=== PATIENT | female | born 1955 | race Caucasian/White ===

== ENCOUNTER → 2017-01-23 | Outpatient (CLI) | payer OTHER ==
[~2017-01-23] VITALS: Ht 172.7 cm; Wt 86.1 kg
[~2017-01-23] MED LIST: HYDROCHLOROTHIA25 M1 PO; HYDROCODON-ACE1 EAC8 PO; HYDROXYCHLOROQ200 M1 PO; NABUMETONE 750750 M1 PO; PREDNISONE 5 MG5 MG PO; TOPROL XL50 MG PO
--- NOTE | ~2017-01-23 | HPC ---
[facility] [place] [address] PAIN MANAGEMENT CONSULTATION Name: KIM RYDER ANN Room #: REG MITCHELDerrick Verde#: [id number] Admission: 01/23/17 Attend Phys: Bishop Ro DO Discharge: Date of : 55 Report #: [id number] THIS REPORT FOR: //name// CC: Obi Ro The patient is a very pleasant 61-year-old female being treated for symptomatic lumbar radiculopathy, status post decompressive laminectomy, seeing in consultation on 01/13/2017. We sought authorization for right L4-L5 and L5-S1 transforaminal epidural injections. The patient was started on Naprosyn 500 mg b.i.d. Returns to pain clinic today noting Naprosyn is doing well, but still has ongoing pain, rates it at 6-7 on a VAS. Pain is in the right L4 and L5 distribution, lateral leg primarily with posterior aspect as well. ASSESSMENT: Symptomatic lumbar radiculopathy, status post decompressive laminectomy. RECOMMENDATION: Proceed with epidural injection under fluoroscopy today, right L4-L5 and right L5-S1 transforaminal epidural injections. Continue Naprosyn. Follow up in 3 weeks for reevaluation. PROCEDURE 1: Right L4-L5 transforaminal epidural injection under fluoroscopy. PROCEDURE NOTE: After both written and informed consent was obtained including risk of spinal cord damage, infection, increased pain and paralysis, the patient agreed to proceed. The patient was taken to the fluoroscopy suite, placed in a prone position with appropriate abdominal bolstering. After sterile prep with ChloraPrep and sterile drape, a skin wheal with 1% Xylocaine was raised. A 22 gauge 4-1/2 inch epidural Tuohy needle was inserted. From an oblique approach into the posterior-superior aspect of the right L4-L5 neural foramen with continuous pressure on the glass syringe plunger for loss of resistance. Glass syringe was filled with 2 cc of 0.1 Xylocaine. The glass loss of resistance syringe was removed. A low volume extension tubing was connected, negative aspiration was accomplished for cerebrospinal fluid or blood. 1 mL of Omnipaque was injected which showed spread both within the epidural space and laterally along the nerve root. This was followed with 40 mg of triamcinolone plus 1 mL of 1.5% preservative-free Xylocaine. Needle was partially withdrawn, 0.5 mL of Xylocaine was injected to clear the needle and the needle was removed. The area was cleansed, band-aid was applied. The patient was allowed to ambulate to the recovery room, discharged in good and stable condition. PROCEDURE 2: Right L5-S1 transforaminal epidural injection under fluoroscopy. PROCEDURE NOTE: After both written and informed consent was obtained including risk of spinal cord damage, infection, increased pain and paralysis, the patient agreed to proceed. The patient was taken to the fluoroscopy suite, placed in a prone position with appropriate abdominal bolstering. After sterile prep with [address] [address] PAIN MANAGEMENT CONSULTATION Name: KIM RYDER Room #: JERARDO Verde#: [id number] Admission: 01/23/17 Attend Phys: Bishop Ro DO Discharge: Date of : 55 Report #: [id number] ChloraPrep and sterile drape, a skin wheal with 1% Xylocaine was raised. A 22 gauge 4-1/2 inch epidural Tuohy needle was inserted. From an oblique approach into the posterior-superior aspect of the right L5-S1 neural foramen with continuous pressure on the glass syringe plunger for loss of resistance. Glass syringe was filled with 2 cc of 0.1 Xylocaine. The glass loss of resistance syringe was removed. A low volume extension tubing was connected, negative aspiration was accomplished for cerebrospinal fluid or blood. 1 mL of Omnipaque was injected which showed spread both within the epidural space and laterally along the nerve root. This was followed with 40 mg of triamcinolone plus 1 mL of 1.5% preservative-free Xylocaine. Needle was partially withdrawn, 0.5 mL of Xylocaine was injected to clear the needle and the needle was removed. The area was cleansed, band-aid was applied. The patient was allowed to ambulate to the recovery room, discharged in good and stable condition. The patient was monitored for an appropriate period of time, discharged in good and stable condition. <ELECTRONICALLY SIGNED> By: Bishop Ro DO 01/24/17 0731 1600 [id number] Bishop Ro DO /nt
[2017-01-23 13:23] VITALS: BP 140/87
== END | disposition home or self-care (01) ==
LOC: PAIN 06:46
DX: M54.16 Radiculopathy, lumbar region (principal); Z98.890 Other specified postprocedural states

== ENCOUNTER → 2017-02-27 | Outpatient (CLI) | payer OTHER ==
[~2017-02-27] VITALS: Ht 172.7 cm; Wt 85.5 kg
[~2017-02-27] MED LIST changes: +IBUPROFEN 200200 M1 PO
--- NOTE | ~2017-02-27 | HPC ---
[address] [address] PAIN MANAGEMENT CONSULTATION Name: KIM RYDER Room #: REG JEET Verde#: [id number] Admission: 02/27/17 Attend Phys: Bishop Ro DO Discharge: Date of : 55 Report #: [id number] THIS REPORT FOR: //name// CC: Obi Ro The patient is a 61-year-old female, prior seen in the pain clinic on 02/13/2017, diagnosed with symptomatic lumbar radiculopathy status post decompressive laminectomy. We did L4-L5 and L5-S1 right-sided transforaminal epidural injections on 01/23/2017. She had good resolution of the L4 symptoms. She had ongoing right L5 pain. We sought authorization for repeat left L5-S1 transforaminal epidural injection under fluoroscopy. She returns to pain clinic today noting pain continues posterior aspect of the leg down to the foot. She rates pain at 7/8 on a VAS. She wishes to proceed with injection today. ASSESSMENT: Symptomatic lumbar radiculopathy status post decompressive laminectomy. PROCEDURE: Transforaminal epidural injection under fluoroscopy at L5-S1. PROCEDURE NOTE: After both written and informed consent was obtained including risk of spinal cord damage, infection, increased pain and paralysis, the patient agreed to proceed. The patient was taken to the fluoroscopy suite, placed in a prone position with appropriate abdominal bolstering. After sterile prep with ChloraPrep and sterile drape, a skin wheal with 1% Xylocaine was raised. A 22 gauge 4-1/2 inch epidural Tuohy needle was inserted. From an oblique approach into the posterior-superior aspect of the left L5-S1 neural foramen with continuous pressure on the glass syringe plunger for loss of resistance. Glass syringe was filled with 2 cc of 0.1 Xylocaine. The glass loss of resistance syringe was removed. A low volume extension tubing was connected, negative aspiration was accomplished for cerebrospinal fluid or blood. 1 mL of Omnipaque was injected which showed spread both within the epidural space and laterally along the nerve root. This was followed with 80 mg of triamcinolone plus 1 mL of 1.5% preservative-free Xylocaine. Needle was partially withdrawn, 0.5 mL of Xylocaine was injected to clear the needle and the needle was removed. The area was cleansed, band-aid was applied. The patient was allowed to ambulate to the recovery room, discharged in good and stable condition. By: 0851 1402 Bishop Ro DO /dago
[2017-02-27 11:14] VITALS: BP 132/86
== END | disposition home or self-care (01) ==
LOC: PAIN 06:27
DX: M54.16 Radiculopathy, lumbar region (principal); G89.29 Other chronic pain; Z98.890 Other specified postprocedural states; Z88.2 Allergy status to sulfonamides; Z79.899 Other long term (current) drug therapy

== ENCOUNTER → 2017-06-12 | Outpatient (CLI) | payer OTHER ==
[~2017-06-12] VITALS: Ht 172.7 cm; Wt 84.6 kg
[~2017-06-12] MED LIST changes: +NAPROSYN500 MG PO
--- NOTE | ~2017-06-12 | HPC ---
[facility] [place] [address] PAIN MANAGEMENT CONSULTATION Name: KIM RYDER ANN Room #: REG JEET Ammon#: [id number] Admission: 06/12/17 Attend Phys: Bishop Ro DO Discharge: Date of : 55 Report #: [id number] THIS REPORT FOR: //name// CC: Obi Ro HISTORY OF PRESENT ILLNESS: The patient is a pleasant 61-year-old female, prior seen 02/27/2017. At that time, progressed to do a left L5-S1 transforaminal epidural injection for some ongoing left low back, buttock and leg pain. She had really only nominal relief with this. Prior, we have treated right lumbar radicular symptoms with right L4-L5 and L5-S1 transforaminal epidural injections with overall excellent improvement, last injection had been 01/23/2017. She returns to pain clinic today noting pain is primarily low back, left greater than right, really not radiating below about mid thigh. Pain is exacerbated with standing, walking and bending. She rates the pain up to 7-8 on a VAS, which was this morning. Currently, it is fairly nominal. She notes the pain "comes out of nowhere", but is also exacerbated with climbing stairs, lifting her leg or reaching above her head. PHYSICAL EXAMINATION: GENERAL: Shows 61-year-old female, BMI is 28.4 kilograms per meter squared. VITAL SIGNS: Stable as noted in the EMR. MUSCULOSKELETAL: Rises from the chair using the armrest, modestly antalgic gait. Diffuse tenderness across the SI areas, left greater than right. Grossly positive Massiel test bilaterally. Positive Gaenslen's test. Positive pelvic distraction. EXTREMITIES: Lower extremity strength is generally symmetric. Straight leg raise is negative at this time. ASSESSMENT: Symptomatic sacroiliac-mediated pain by clinical exam and history; history of lumbar radiculopathy, status post lumbar decompressive laminectomy, radicular symptoms relatively quiescent at present and lumbosacral spondylosis without myelopathy. RECOMMENDATIONS: 1. We will seek authorization for bilateral SI joint injection under fluoroscopy. 2. Referral for physical therapy for core strengthening exercises. 3. Continue current medication including naproxen 500 mg b.i.d. The patient cautioned about taking [id number] ibuprofen concurrently. <ELECTRONICALLY SIGNED> By: Bishop Ro DO 06/13/17 0944 1138 1223 Bishop Ro DO /nt
[2017-06-12 09:06] VITALS: BP 148/79
== END ==
LOC: PAIN 06:59
DX: M96.1 Postlaminectomy syndrome, not elsewhere classified (principal); M47.897 Other spondylosis, lumbosacral region

== ENCOUNTER → 2017-06-30 | Outpatient (CLI) | payer OTHER ==
[~2017-06-30] VITALS: Ht 172.7 cm; Wt 84.4 kg
--- NOTE | ~2017-06-30 | HPC ---
[facility] [address] [facility] [place] [address] PAIN MANAGEMENT CONSULTATION Name: KIM RYDER Room #: REG MITCHELDerrick Verde#: [id number] Admission: 06/30/17 Attend Phys: Bishop Ro DO Discharge: Date of : 55 Report #: [id number] THIS REPORT FOR: //name// CC: Obi Ro The patient is a very pleasant 61-year-old female, she has prior been treated for lumbar radiculopathy status post decompressive laminectomy, was seen in the pain clinic 06/12/2017, diagnosed with left SI joint dysfunction. Referred to physical therapy for core strengthening exercises and continued on Naprosyn 500 mg b.i.d. We sought authorization for SI joint injection under fluoroscopy. The patient presents to pain clinic today requesting left SI joint injection as discussed at prior visit. Authorization has been obtained. The patient has ongoing pain, left SI, exacerbated with forward bending and flexion. Positive Massiel test. Positive Gaenslen's. Positive pelvic distraction. Rates her pain 10 this a.m., though it is relatively quiescent at this moment. PHYSICAL EXAMINATION: Otherwise shows 5 feet 8 inches, 186-pound female, BMI is 28.3 kg/m2. Vital signs are stable as noted on the EMR with modest hypertension, blood pressure 156/99. ASSESSMENT: Symptomatic left sacroiliac joint dysfunction by clinical exam and history, the patient with prior history of lumbar decompressive laminectomy. PROCEDURE: Left SI joint injection under fluoroscopy. PROCEDURE NOTE: After written informed consent was obtained, the patient was taken to the fluoroscopy suite, placed in prone position. After sterile prep and drape, skin wheal was raised. A 22-gauge stylet needle was placed to contact the inferior aspect of the left SI joint. Negative aspiration was accomplished. 1 mL of Omnipaque was injected, which showed spread within the joint with a little extravasation. This was followed with 40 mg of triamcinolone plus 2 mL of 0.5% preservative-free bupivacaine. Needle was removed, the area was cleansed, Band-Aid applied. The patient was monitored for an appropriate period of time, discharged in good and stable condition. Fluoroscopy time was under 15 seconds. Follow up is as needed. The patient instructed to continue naproxen and resume physical therapy. <ELECTRONICALLY SIGNED> By: Bishop Ro DO 07/02/17 0819 1155 1323 Bishop Ro DO /nt
[2017-06-30 11:11] VITALS: BP 156/99
== END | disposition home or self-care (01) ==
LOC: PAIN 07:03
DX: M53.3 Sacrococcygeal disorders, not elsewhere classified (principal); Z98.890 Other specified postprocedural states; M54.16 Radiculopathy, lumbar region; Z79.899 Other long term (current) drug therapy

== ENCOUNTER → 2017-07-21 | Outpatient (CLI) | payer OTHER ==
[~2017-07-21] VITALS: Ht 172.7 cm; Wt 83.2 kg
--- NOTE | ~2017-07-21 | HPC ---
[address] [place] [address] PAIN MANAGEMENT CONSULTATION Name: KIM RYDER Room #: REG JEET Verde#: [id number] Admission: 07/21/17 Attend Phys: Bishop Ro DO Discharge: Date of : 55 Report #: [id number] THIS REPORT FOR: //name// CC: Obi Ro The patient is a pleasant 61-year-old female, being treated for lumbar radiculopathy status post decompressive laminectomy. Last visit had some left SI mediated pain. We did an SI joint injection at that time. She returns to pain clinic today for a prolonged visit. She was seen from 10:21-10:50, greater than 50% of this 25+ minute visit was spent counseling the patient, reviewing therapeutic options, physical exam, discussing treatment options. The patient was seen in the pain clinic off and on since 2006. She ultimately had multilevel lumbar laminectomy in 2009. In 2013, she had some left low back, buttock pain. MRI at that time had noted left gluteus medius and gluteus minimus tendinosis without tearing at the attachment the left greater trochanter, correlated with some trochanteric bursitis, was treated conservatively. Subsequent MRI of the lumbar spine, most recent from 12/2016 with ongoing right radicular pain, had noted postoperative changes from the prior laminectomy with what appeared to be L3-L4 through L5-S1 level posterior decompression, trace retrolisthesis at L3-L4 with severe right neural foraminal narrowing. L4-L5 trace retrolisthesis with severe right and moderate to severe left neural foraminal narrowing L5-S1 noted, central canal diameter 7.4 mm, with a trace left and severe right neural foraminal narrowing. Prior to SI joint injection at last visit, the patient had a right transforaminal injection L3-L4, L4-L5 in January with good improvement of radicular component pain. She returns to pain clinic today with somewhat of a different complaint. Pain is primarily in the medial aspect of the left glute, radiating to the medial aspect of the left posterior thigh. The patient notes symptoms occur when standing, bending from the waist, climbing stairs. She feels like her hamstring is "tight." This left gluteal pain has been present since the flare up in October. She thinks that the SI joint injection at last visit afforded some incremental relief, but pain remains problematic. She rates perhaps 20% relief following the procedure. She notes the pain again exacerbated with standing, climbing, bending, occasionally "comes out of nowhere." She denies any myelopathic symptoms. No lower extremity weakness, legs have not given out. PHYSICAL EXAMINATION: [facility] [address] [place] [address] PAIN MANAGEMENT CONSULTATION Name: KIM RYDER Room #: REG JEET Verde#: [id number] Admission: 07/21/17 Attend Phys: Bishop Ro DO Discharge: Date of : 55 Report #: [id number] GENERAL: Shows a 61-year-old female, BMI is 27.9 kilograms per meter squared. VITAL SIGNS: Blood pressure 126/74, pulse 83, respirations 16. EXTREMITIES: Rises from chair using armrest. Gait is tandem. Passive range of motion of the hips is symmetric. Moderate tenderness with external rotation and flexion of the left leg, though really does not radiate pain into the left SI. Equivocal Massiel at best. Equivocal Gaenslen test. Lower extremity strength is symmetric. Resistance to external rotation (piriformis test) is negative bilaterally. Does have some point tenderness in the medial aspect of the gluteus medius. She does have pain with resistance to adduction of the left leg and lower extremity extension to resistance. She does have tenderness in the left semitendinosis, left adductor melida and the medial aspect of the left gluteus lydia. No radicular symptoms noted. Lower extremity strength is symmetric. Straight leg raise negative. Patellar and Achilles reflexes are generally preserved. ASSESSMENT: 1. Myofascial pain involving 3 muscle groups in medial aspect of the left proximal leg (semitendinosis, medial aspect of the gluteus lydia and the adductor melida). 2. Lumbar radiculopathy, status post decompressive laminectomy with extensive decompressive fusion and a component of left sacroiliac mediated pain, relatively quiescent following sacroiliac joint injection. RECOMMENDATION: 1. We will seek authorization for trigger point injections in the 3 aforementioned muscle groups. 2. We will refer to Physical Therapy for massage and stretch of the aforementioned muscle groups. Discharged in good stable condition after 25+ minute visit was spent with the patient reviewing therapeutic options and counseling the patient and performing physical exam and excluding noncontributory diagnoses. Discharged in good and stable condition. Follow up in 1 week for trigger point injections. Hopefully, the patient will start physical therapy by that time. <ELECTRONICALLY SIGNED> By: Bishop Ro DO 07/24/17 0701 1141 1339 Bishop Ro DO /nt
[2017-07-21 10:12] VITALS: BP 126/74
== END ==
LOC: PAIN 05:45
DX: M54.16 Radiculopathy, lumbar region (principal); M96.1 Postlaminectomy syndrome, not elsewhere classified; M53.3 Sacrococcygeal disorders, not elsewhere classified

== ENCOUNTER → 2017-07-24 | Outpatient (CLI) | payer OTHER ==
[~2017-07-24] VITALS: Ht 172.7 cm; Wt 83.1 kg
--- NOTE | ~2017-07-24 | HPC ---
[facility] [place] [address] PAIN MANAGEMENT CONSULTATION Name: MATTDonyANDRE Room #: REG JEET Verde#: [id number] Admission: 07/24/17 Attend Phys: Bishop Ro DO Discharge: Date of : 55 Report #: [id number] THIS REPORT FOR: //name// CC: Obi Ro DATE OF SERVICE: 07/24/2017 The patient is a very pleasant 61-year-old female seen last week for a component of myofascial pain. She has a component of SI mediated pain and she is status post lumbar decompressive laminectomy. At last visit, we noted she had discrete trigger points in the medial aspect of the left gluteus lydia, the left semitendinosus and the left adductor melida muscles. We elected to proceed with trigger point injection today. The patient returns to Pain Clinic noting pain continues to be problematic. She rates the pain 5-6 on a VAS. It is unchanged in position. We elected to proceed with trigger point injections today. PROCEDURE: Trigger point injections x 3, left semitendinosus, medial aspect of the left gluteus lydia and left adductor melida. PROCEDURE NOTE: After written informed consent was obtained, the patient placed in prone position with the nurse in the room. The trigger areas were identified, cleansed with alcohol. Using a 25-gauge needle, 50 mg triamcinolone plus a 50:50 mix of 0.5% preservative-free bupivacaine plus 1.5% preservative-free Xylocaine with 1:200,000 epinephrine was injected into and around the 3 discrete triggers. Needle was removed. The area was cleansed, Band-Aid was applied. The patient monitored for an appropriate period of time, discharged in good and stable condition, noting significant improvement of baseline pain, in fact noted pain was 2 on a VAS on discharge. Told to use ice to the area today. Continue with strict range of motion. Follow up in 2 weeks for reevaluation. Cancel if doing well. <ELECTRONICALLY SIGNED> By: Bishop Ro DO 07/28/17 0711 1229 16 Bishop Ro DO /nt
[2017-07-24 10:00] VITALS: BP 134/78
== END | disposition home or self-care (01) ==
LOC: PAIN 05:35
DX: M79.1 Myalgia (principal); M53.3 Sacrococcygeal disorders, not elsewhere classified; Z98.890 Other specified postprocedural states; Z88.2 Allergy status to sulfonamides; Z79.899 Other long term (current) drug therapy

== ENCOUNTER → 2017-08-14 | Outpatient (CLI) | payer OTHER ==
[~2017-08-14] VITALS: Ht 172.7 cm; Wt 83.0 kg
--- NOTE | ~2017-08-14 | HPC ---
[facility] [place] [address] PAIN MANAGEMENT CONSULTATION Name: KIM RYDER ANN Room #: REG MITCHELDerrick Verde#: [id number] Admission: 08/14/17 Attend Phys: Bishop Ro DO Discharge: Date of : 55 Report #: [id number] THIS REPORT FOR: //name// CC: Obi Ro PAIN CLINIC NOTE The patient is a 61-year-old female being treated for myofascial pain, history of lumbar decompressive laminectomy. At last visit on 07/24/2017, we did trigger point injections in the left semitendinosis, the medial aspect of the left gluteus lydia and the left adductor longus. She notes significant improvement with this. She has continued with physical therapy, they are doing some ultrasound treatments. She still, however, has piriformis related pain. Pain in the left buttock with occasional lancinating pain down the leg in a sciatic type fashion, exacerbated with left leg external rotation. She notes occasionally if she stands and pivots to the left producing some stretch on the piriformis muscle, this significantly exacerbates the pain. PHYSICAL EXAMINATION: Otherwise unchanged, a pleasant 61-year-old female, BMI is 27.8 kilograms per meter squared. Blood pressure 137/93, pulse 75, respirations 14. Subjective pain score is 4 on a VAS. Gait is otherwise tandem. ASSESSMENT: Myofascial pain by history, lumbar decompressive laminectomy by history, acute left piriformis syndrome. RECOMMENDATION: We will seek authorization for left piriformis injection under fluoroscopy, I will renew physical therapy today for "modalities as indicated" for left piriformis syndrome and myofascial pain. The patient was discharged in good and stable condition. We will seek authorization for left piriformis injection under fluoroscopy. <ELECTRONICALLY SIGNED> By: Bishop Ro DO 08/15/17 0656 1135 1506 Bishop Ro DO /nt
[2017-08-14 11:07] VITALS: BP 137/93
== END ==
LOC: PAIN 07:07
DX: M79.1 Myalgia (principal); M96.1 Postlaminectomy syndrome, not elsewhere classified; G57.02 Lesion of sciatic nerve, left lower limb

== ENCOUNTER → 2017-08-21 | Outpatient (CLI) | payer OTHER ==
[~2017-08-21] VITALS: Ht 172.7 cm; Wt 83.6 kg
--- NOTE | ~2017-08-21 | HPC ---
[facility] [place] [address] PAIN MANAGEMENT CONSULTATION Name: KIM RYDER ANN Room #: REG JEET Verde#: [id number] Admission: 08/21/17 Attend Phys: Bishop Ro DO Discharge: Date of : 55 Report #: [id number] THIS REPORT FOR: //name// CC: Obi Ro PROCEDURE: Left piriformis injection under fluoroscopy. INDICATIONS: Left piriformis syndrome. The patient who is status post lumbar decompressive laminectomy, component of myofascial pain. Last seen in pain clinic on 08/14/2017. We sought authorization for said procedure. The patient presents to pain clinic today noting subjective pain score is 3 on a VAS. Pain is in the left low back, buttock, right at the gluteal fold and medial aspect. PROCEDURE: Left piriformis injection under fluoroscopy. DESCRIPTION OF PROCEDURE: After written informed consent was obtained, the patient was taken to fluoroscopy suite, placed in prone position. After sterile prep and drape, skin wheal was raised. A 22-gauge stylet needle was placed to contact the inferior aspect of the left SI joint. Depth was noted and the needle was withdrawn, repositioned in a slightly cephalad direction and advanced approximately 1 cm deeper. Negative aspiration was accomplished. 1 mL of Omnipaque was injected, which showed spread within the piriformis muscle with oblique stranding of contrast noted. A 40 mg triamcinolone plus 3 mL of 1% preservative-free Xylocaine was injected. Needle was removed. Area was cleansed. Band-Aid was applied. The patient monitored for an appropriate period of time. Please note, the patient noted pain was absent on discharge. We will continue stretching and ice this area. Follow up as needed. I did discuss with the patient as I am leaving the practice area. We will have her follow up with one of the [facility] as needed. <ELECTRONICALLY SIGNED> By: Bishop Ro DO 08/22/17 0727 1353 1828 Bishop Ro DO /nt
[2017-08-21 12:45] VITALS: BP 136/80
== END | disposition home or self-care (01) ==
LOC: PAIN 06:56
DX: M79.1 Myalgia (principal); G57.02 Lesion of sciatic nerve, left lower limb; G89.29 Other chronic pain; Z98.890 Other specified postprocedural states; Z88.2 Allergy status to sulfonamides; Z79.899 Other long term (current) drug therapy